=== PATIENT | female | born 1970 | race African-American/Black ===

== ENCOUNTER 2019-01-10 08:31 | Observation (INO) ==
[2019-01-10] MEDS ORDERED: SODIUM CHLORIDE 0.9% 1,000 ML IV STA (10:38)
[2019-01-10 11:02] LABS: Albumin 4.2 G/DL (3.4-5.0); Bilirubin,Total 0.5 MG/DL (0.2-1.0); Calcium 8.9 MG/DL (8.5-10.1); Osmolality,Calculated 274.5 MOS/KG (273-304); Total Protein 7.7 G/DL (6.4-8.3)
[2019-01-10 11:08] LABS: Apearance,Urine CLEAR (Clear); Bilirubin,Urine Negative (Negative); Blood, Urine Moderate mg/dL (Negative); Glucose,Urine (UA) Negative (Negative); Ketones,Urine Negative (Negative); Mucus,Urine Occasional /LPF (Occasional); Nitrite,Urine Negative (Negative); Protein,Urine Negative; RBC,Urine 5 /HPF (0-4); Squamous Epithelial Cell,Urine Occasional /HPF (0-10); Urine Color Straw (Yellow); Urine Specific Gravity 1.015 (1.001-1.035); Urine Urobilinogen < 2.0 EU/DL (0.2-1.0)
[2019-01-10] MEDS ORDERED: KETOROLAC 30 MG/1 ML VIAL IV STA (11:11)
[2019-01-10 11:12] LABS: Basophils % 0.5 % (0.0-0.8); Eosinophils % 0.2 % (0.00-10.9); Hematocrit 26.8 VOL% (35.7-47.0); Immature Granulocytes % 0.3 %; Immature Granulocytes Absolute 0.03 #; Lymphocytes # 1.1 10*3/uL (1.4-4.0); Lymphocytes % 12.8 % (21.3-54.2); Mean Corpuscular HGB Conc 27.6 GM/DL (32-36); Mean Corpuscular Volume 70.3 FL (87-102); Mean Platelet Volume 8.9 FL (9.6-12.0); Monocytes % 5.1 % (1.7-12.7); Neutrophils % 81.1 % (38.7-73.9); Platelet Count 473 T/CUMM (130-400); Red Blood Count 3.81 MC/CUMM (3.8-5.5); Red Cell Distribution Width 21.3 % (9.3-17.3); White Blood Count 8.8 T/CUMM (4-12)
[2019-01-10] MEDS ORDERED: ONDANSETRON 4 MG/2 ML VIAL IV STA (11:12)
[2019-01-10 11:13] LABS: Hemoglobin 7.4 GM/DL (12.0-16.0)
[2019-01-10] MEDS ORDERED: MORPHINE 4 MG/1 ML VIAL IV STA (11:21)
[2019-01-10] MEDS ORDERED: MAGNESIUM SULF RIDER 2 GM in PREMIX 1 EACH IV PRN (14:25)
[2019-01-10] MEDS ORDERED: ONDANSETRON 4 MG/2 ML VIAL IV PRN (14:25)
[2019-01-10] MEDS ORDERED: MAGNESIUM SULF RIDER 4 GM in PREMIX 1 EACH IV PRN (14:25)
[2019-01-10] MEDS ORDERED: MORPHINE 4 MG/1 ML VIAL IV PRN (14:26)
[2019-01-10] MEDS ORDERED: ACETAMINOPHEN 325 MG TABLET PO PRN (14:26)
[2019-01-10] MEDS ORDERED: SODIUM CHLORIDE 0.9% 1,000 ML IV PRN (14:48)
[2019-01-10] MEDS: CIPROFLOXACIN INJ 400 MG in PREMIX 1 EACH IV SCH (15:36)
[2019-01-10] MEDS: metroNIDAZOLE INJ 500 MG in PREMIX 1 EACH IV SCH ×2 (17:11→20:51)
[2019-01-10] MEDS: PANTOPRAZOLE 40 MG TABLET PO SCH (20:52)
[2019-01-11] MEDS: metroNIDAZOLE INJ 500 MG in PREMIX 1 EACH IV SCH ×2 (02:54→09:04)
[2019-01-11] MEDS: CIPROFLOXACIN INJ 400 MG in PREMIX 1 EACH IV SCH (02:58)
[2019-01-11 05:46] LABS: Basophils # 0.1 10*3/uL (0.0-0.2); Basophils % 0.8 % (0.0-0.8); Eosinophils # 0.1 10*3/uL (0.0-0.87); Eosinophils % 2.4 % (0.00-10.9); Hematocrit 30.5 VOL% (35.7-47.0); Immature Granulocytes % 0.5 %; Immature Granulocytes Absolute 0.03 #; Lymphocytes # 1.7 10*3/uL (1.4-4.0); Lymphocytes % 29.2 % (21.3-54.2); Mean Corpuscular HGB Conc 29.5 GM/DL (32-36); Mean Corpuscular Volume 74.4 FL (87-102); Mean Platelet Volume 8.6 FL (9.6-12.0); Monocytes % 10.5 % (1.7-12.7); Neutrophils % 56.6 % (38.7-73.9); Platelet Count 371 T/CUMM (130-400); Red Cell Distribution Width 22.3 % (9.3-17.3); White Blood Count 5.9 T/CUMM (4-12)
[2019-01-11 06:00] LABS: Calcium 8.4 MG/DL (8.5-10.1); Osmolality,Calculated 274.5 MOS/KG (273-304)
[2019-01-11 06:27] LABS: Hypochromasia 1+; Microcytosis 1+; Spherocytes Few; Target Cells Slight
[2019-01-11 06:28] LABS: Anisocytosis 1+; Platelet Estimate Normal; Polychromasia Slight
[2019-01-11] MEDS: PANTOPRAZOLE 40 MG TABLET PO SCH (09:04)
[2019-01-11] MEDS: SODIUM CHLORIDE 0.9% 1,000 ML IV SCH ×2 (09:05→09:06)
[2019-01-11 11:31] VITALS: BP 136/70
== END 2019-01-11 11:55 | disposition home or self-care (01) ==
LOC: N.ED 08:31 → N.EDINP 08:31 → N.2E 17:00
PROVIDERS: ADMIT Internal Medicine; ATTEND Internal Medicine